=== PATIENT | male | born 1995 | race Caucasian/White ===

== ENCOUNTER 2018-10-22 22:19 | Emergency (ER) | payer OTHER ==
[~2018-10-22] VITALS: Ht 170.2 cm; Wt 53.8 kg
[~2018-10-22 22:19] MED LIST: ADDE30 PO; CITA20TA11 PO; OXYC-284 PO
[2018-10-22 23:34] VITALS: Ht 170.2 cm; Wt 53.8 kg
[2018-10-22] MEDS ORDERED: morphine 4 MG/ML VIAL IV STA (23:58)
[2018-10-22] MEDS ORDERED: ONDANSETRON 4 MG INJ IV STA (23:58)
[2018-10-22] MEDS ORDERED: SOD CHLORIDE 0.9% 1,000 ML IV STA (23:58)
[2018-10-22] MEDS ORDERED: LORAZEPAM 2 MG INJ IV STA (23:58)
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
[2018-10-23] MEDS ORDERED: CIPR500T4 PO (04:17)
[2018-10-23] MEDS ORDERED: LACT-135 PO (04:19)
[2018-10-23] MEDS ORDERED: METR500T PO (04:19)
[2018-10-23] MEDS ORDERED: ALKA PO (04:19)
--- NOTE | 2018-10-23 05:35 | ERD ---
ER Documentation Chief Complaint Chief Complaint ap x1 month. hx pancreatitis HPI This is a 23-year-old male who actually came in with complaints of abdominal pain on and off for the past month. She has a history of pancreatitis has been drinking heavily. After further questioning, however the patient says he feels like he is being persecuted and he needs "private security to keep him safe ". Denies suicidal or homicidal ideation. Denies any other current complaints. ROS All systems reviewed and are negative except as per history of present illness. Medications Home Meds Reported Medications Lactose-Reduced Food (Ensure Original) 237 Ml Liquid, 237 ML PO DAILY 10/23/18 Aspirin ([place]) 1 Tab Tabef, 1 TAB PO DAILY, TAB 10/23/18 Metronidazole* (Flagyl*) 500 Mg Tablet, 500 MG PO Q8, TAB 10/23/18 Ciprofloxacin Hcl* (Ciprofloxacin Hcl*) 500 Mg Tablet, 500 MG PO BID, #14 TAB 10/23/18 Citalopram Hydrobromide* (Celexa*) 20 Mg Tablet, 20 MG PO DAILY, TAB 03/02/14 Amphet Zgn-Ciiqhr-U-Amphet (Adderall) 30 Mg Tablet, 30 MG PO DAILY, TAB 03/02/14 Discontinued Reported Medications Oxycodone Hcl-Acetaminophen* (Percocet*) 10-325 Mg Tablet, 1 TAB PO BID PRN for PAIN, TAB 03/02/14 Allergies Allergies: Coded Allergies: ketorolac (Unverified Allergy, Unknown, rash, 10/23/18) PMhx/Soc Hx Respiratory Disorders: Yes (asthma) Hx Alcohol Use: Yes (daily) Hx Substance Use: Yes (meth) Hx Tobacco Use: No Smoking Status: Current some day smoker Physical Exam Vitals Vital Signs Date Temp Pulse Resp B/P (MAP) Pulse Ox O2 O2 Flow FiO2 Time Delivery Rate 10/23/18 135 20 124/88 100 Room Air 02:00 (100) 10/22/18 99.8 157 22 122/58 99 23:34 (79) Physical Exam Const: No acute distress Head: Atraumatic Eyes: Normal Conjunctiva ENT: Normal External Ears, Nose and Mouth. Neck: Full range of motion. No meningismus. Resp: Clear to auscultation bilaterally Cardio: Regular rate and rhythm, no murmurs Abd: Soft, non tender, non distended. Normal bowel sounds Skin: No petechiae or rashes Back: No midline or flank tenderness Ext: No cyanosis, or edema Neur: Awake and alert Psych: Normal Mood and Affect Result Diagram: 10/23/183 10/23/18 0023 Results 24 hrs Laboratory Tests Test 10/23/18 00:23 10/23/18 04:20 White Blood Count 10.2 10^3/ul Red Blood Count 4.52 10^6/ul Hemoglobin 13.8 g/dl Hematocrit 41.3 % Mean Corpuscular Volume 91.4 fl Mean Corpuscular Hemoglobin 30.5 pg Mean Corpuscular Hemoglobin Concent 33.4 g/dl Red Cell Distribution Width 14.0 % Platelet Count 352 10^3/UL Mean Platelet Volume 10.4 fl Immature Granulocytes % 0.400 % Neutrophils % 64.0 % Lymphocytes % 27.1 % Monocytes % 8.2 % Eosinophils % 0.1 % Basophils % 0.2 % Nucleated Red Blood Cells % 0.0 /100WBC Immature Granulocytes # 0.040 10^3/ul Neutrophils # 6.5 10^3/ul Lymphocytes # 2.8 10^3/ul Monocytes # 0.8 10^3/ul Eosinophils # 0.0 10^3/ul Basophils # 0.0 10^3/ul Nucleated Red Blood Cells # 0.0 10^3/ul Sodium Level 141 mmol/L Potassium Level 3.1 mmol/L Chloride Level 99 mmol/L Carbon Dioxide Level 24 mmol/L Anion Gap 18 Blood Urea Nitrogen 18 mg/dl Creatinine 0.91 mg/dl Est Glomerular Filtrat Rate mL/min > 60 mL/min Glucose Level 151 mg/dl Calcium Level 9.7 mg/dl Total Bilirubin 0.7 mg/dl Direct Bilirubin 0.00 mg/dl Indirect Bilirubin 0.7 mg/dl Aspartate Amino Transf (AST/SGOT) 42 IU/L Alanine Aminotransferase (ALT/SGPT) 24 IU/L Alkaline Phosphatase 107 IU/L Total Protein 9.9 g/dl Albumin 5.0 g/dl Globulin 4.90 g/dl Albumin/Globulin Ratio 1.02 Lipase 404 U/L Salicylates Level < 1.0 mg/dl Acetaminophen Level < 10.0 ug/ml Ethyl Alcohol Level < 10.0 mg/dl Urine Color YELLOW Urine Clarity SLIGHTLY CLOUDY Urine pH 5.0 Urine Specific [place] 1.020 Urine Ketones NEGATIVE mg/dL Urine Nitrite NEGATIVE mg/dL Urine Bilirubin NEGATIVE mg/dL Urine Urobilinogen NEGATIVE mg/dL Urine Leukocyte Esterase NEGATIVE Daniel/ul Urine Microscopic RBC 0 /HPF Urine Microscopic WBC 0 /HPF Urine Mucus FEW /HPF Urine Hemoglobin NEGATIVE mg/dL Urine Glucose NEGATIVE mg/dL Urine Total Protein 1+ mg/dl Urine Opiates Screen Positive Urine Barbiturates Negative Urine Amphetamines Screen POSITIVE Urine Benzodiazepines Screen Positive Urine Cocaine Screen Negative Urine Cannabinoids Negative Current Medications Medications Dose Sig/Ramandeep Start Time Status Last (Trade) Ordered Route PRN Stop Time Admin Dose Reason Admin Sodium 1,000 ml @ Q1H STAT 10/22/18 DC 10/23/18 Chloride 1,000 mls/hr IV 23:58 00:10 10/23/18 00:57 Morphine 4 mg ONCE STAT 10/22/18 DC 10/23/18 Sulfate IV 23:58 00:11 (morphine) 10/23/18 00:02 Ondansetron 4 mg ONCE STAT 10/22/18 DC 10/23/18 HCl (Zofran IV 23:58 00:11 Inj) 10/23/18 00:02 Lorazepam 1 mg ONCE STAT 10/22/18 DC 10/23/18 (Ativan) IV 23:58 00:11 10/23/18 00:02 Procedures/MDM Emergency department course: Patient seen the vomit changes. Placed in bed for MD evaluation. With thick discolored mucus was eccentric. Placed on one-to-one watch security. Serial exams were stable here in the department and remained relatively docile. He was given some pain meds for his original complaint of abdominal pain. Serial abdominal exams were negative. Medical decision making: CBC: [no e/o of systemic infection or severe anemia] CMP: [no e/o severe acidosis, alkalosis, renal failure, diabetic ketoacidosis, liver disease] Lipase: [no e/o pancreatitis] PT/INR: [normal coagulation] Urine: [no e/o acute infection or hematuria] Patient's behavioral symptoms have stabilized while in the department. Patient is medically cleared and appropriate for psychiatric evaluation and work up. No e/o neurologic, toxic, infectious, or metabolic cause. Patient recommended for involuntary hold. Currently pending psychiatric placement Departure Diagnosis: Primary Impression: Abdominal pain Abdominal location: unspecified location Qualified Codes: R10.9 - Unspecified abdominal pain Additional Impression: Psychological disorder Condition: GEORGES Godwin Oct 23, 2018 05:35
[2018-10-23] MEDS ORDERED: ONDANSETRON 4 MG INJ IV STA ×2 (08:19→13:23)
[2018-10-23] MEDS ORDERED: HYDROmorphONE 1 MG/ML SYG IV STA ×2 (08:19→13:23)
[2018-10-23] MEDS ORDERED: HYDROmorphONE 2 MG/ML SYG IM STA ×2 (08:24→22:37)
[2018-10-23] MEDS ORDERED: ONDANSETRON (ODT) 4 MG TAB ODT STA (08:24)
[2018-10-23] MEDS ORDERED: HYDROCODONE/APAP (10/325) TAB PO ONE (19:30)
[2018-10-23] MEDS ORDERED: LORAZEPAM 2 MG INJ IM ONE (23:00)
--- NOTE | 2018-10-24 03:30 | EN ---
Date/Time of Note Date/Time of Note DATE: 10/24/18 TIME: 03:29 (GEORGES GRACIA) ER Progress Note Psychiatric Observation Note: Indication: Psychosis Duration: Greater than 22 hours Family history: As documented in original HPI The patient was observed with serial exams over the above timeframe. The patient continued to be well-appearing, and observation continued without complication. All other needs have been met during emergency department stay. Routine psychiatric medications ordered: Placement Hold status: Patient is pending placement. Recommended for involuntary hold by telemetry psychiatry. Patient continues to be agitated and required behavioral restraints and sedation (GEORGES GRACIA) I assumed care at 0600. Restraints have been deescalated. Patient has been started on recommended psychiatric medications twice daily. Plan: Pending placement for 5149, patient will continue to be monitored and obs erved in the emergency department usual medications and as needed medications. (MIKY JENSEN) GEORGES GRACIA Oct 24, 2018 03:30 MIKY JENSEN Oct 24, 2018 08:50
[2018-10-24] MEDS ORDERED: HYDROmorphONE 2 MG/ML SYG IM STA (04:36)
[2018-10-24] MEDS ORDERED: RISPERIDONE 0.25 MG TAB PO ONE (09:00)
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
--- NOTE | 2018-10-24 16:36 | EN ---
Date/Time of Note Date/Time of Note DATE: 10/24/18 TIME: 16:33 ER Progress Note Indication: SI Duration: 4 hr Family History: As documented in the original HPI The patient was observed with serial exams over the above timeframe. The patient continued to be well-appearing and observation continued without complication. A ll other needs have been met during emergency department stay. Hold status: [Telemetry medicine psychiatry released 5150 hold] I discussed the findings with the patient. I advised the patient to follow-up with the primary physician/psychiatrist in about 2-3 days, sooner if needed and return if any concern. Disclaimer: Inadvertent spelling and grammatical errors are likely due to EHR/dictation software use and do not reflect on the overall quality of patient care. Also, please note that the electronic time recorded on this note does not necessarily reflect the actual time of the patient encounter. DERIC GRADY MD Oct 24, 2018 16:36
[2018-10-24 16:46] VITALS: BP 113/79; PULSE 65; RESP 17
== END 2018-10-24 17:02 | disposition home or self-care (01) ==
LOC: E/R 22:19 → EEVIPCON 22:19 → E/R 10-23 18:13
DX: R10.9 Unspecified abdominal pain (principal); J45.909 Unspecified asthma, uncomplicated; F17.210 Nicotine dependence, cigarettes, uncomplicated; F99 Mental disorder, not otherwise specified; Z79.82 Long term (current) use of aspirin
CPT/HCPCS: 36415; 74176; 80053; 80307; 81001; 83690; 85025; 96372; 96374; 96375; 96376; J1170; J2060; J2270; J2405; J7030; Z7502; Z7610